=== PATIENT | male | born 1945 | race Caucasian/White ===

== ENCOUNTER 2024-06-18 10:57 | Outpatient (CLI) | payer MEDICARE | END 2024-06-18 10:58 | disposition home or self-care (01) | LOC: BICMRI 10:57 | PROVIDERS: ATTEND Family Medicine | DX: M47.26 Other spondylosis with radiculopathy, lumbar region (principal); M47.817 Spondylosis without myelopathy or radiculopathy, lumbosacral region | CPT/HCPCS: 72148 ==